=== PATIENT | female | born 1950 | race Caucasian/White ===

== ENCOUNTER 2018-03-04 08:47 | Emergency (ER) | payer OTHER ==
[~2018-03-04] VITALS: Ht 154.9 cm; Wt 46.5 kg
[2018-03-04] MEDS ORDERED: NORCO 5/3251 TABLET PO (10:42)
[2018-03-04 11:32] VITALS: BP 142/71
== END 2018-03-04 11:35 | disposition home or self-care (01) ==
LOC: EME 08:47
DX: S42.251A Displaced fracture of greater tuberosity of right humerus, initial encounter for closed fracture (principal); W10.9XXA Fall (on) (from) unspecified stairs and steps, initial encounter; W01.0XXA Fall on same level from slipping, tripping and stumbling without subsequent striking against object, initial encounter; Y92.009 Unspecified place in unspecified non-institutional (private) residence as the place of occurrence of the external cause
CPT/HCPCS: 73030; 73060; 73070; 99281; 99285